=== PATIENT | female | born 1990 | race Caucasian/White ===

== ENCOUNTER 2017-04-01 06:35 | Emergency (ER) | payer MEDICAID ==
[2017-04-01 09:58] VITALS: BP 115/75
== END 2017-04-01 10:45 | disposition home or self-care (01) ==
LOC: ED 06:35
DX: R11.10 Vomiting, unspecified (principal); R19.7 Diarrhea, unspecified; R10.9 Unspecified abdominal pain

== ENCOUNTER 2017-05-08 22:11 | Emergency (ER) | payer MEDICAID ==
[~2017-05-08] VITALS: Ht 162.6 cm; Wt 62.1 kg
[2017-05-08 22:32] VITALS: Ht 162.6 cm; Wt 62.1 kg
[2017-05-09 01:31] VITALS: BP 131/82
== END 2017-05-09 01:31 | disposition home or self-care (01) ==
LOC: ED 22:11
DX: S91.201A Unspecified open wound of right great toe with damage to nail, initial encounter (principal); I10 Essential (primary) hypertension; F17.200 Nicotine dependence, unspecified, uncomplicated; Y93.64 Activity, baseball; Y92.89 Other specified places as the place of occurrence of the external cause; Y99.8 Other external cause status
CPT/HCPCS: J2001